=== PATIENT | female | born 1990 | race Caucasian/White ===

== ENCOUNTER 2019-07-07 19:34 | Inpatient (IN) ==
[2019-07-07] MEDS ORDERED: LACTATED RINGER'S 1,000 ML IV PRN ×2 (20:52→21:17)
[2019-07-07] MEDS ORDERED: PENICILLIN G POTASSIUM 6 MU in DEXTROSE 5% 250 ML IV ONE (21:00)
[2019-07-07] MEDS ORDERED: OXYTOCIN 30 UNITS/500 ML BAG IV PRN (21:17)
[2019-07-07] MEDS ORDERED: PENICILLIN G POTASSIUM 3 MU in DEXTROSE 5% 100 ML IV PRN (21:17)
--- NOTE | 2019-07-07 21:28 | History & Physical Report ---
Date of Service July 07, 2019 Assessment & Plan (1) uterine contractions in third trimester, antepartum: 29 yo at 35.4 wks with ctxs, cervical change VSS Afebrile FHR reassuring GBS unknown, h/o GBS+ x2 S/P Betamethasone series Plan to admit for labor, PCN, IVF, observe Anticipate History of Present Illness Chief Complaint: Contractions Primary Care Provider: NO PCP Patient is a 29 yo at 35.4 wks who has been feeling ctxs since yesterday morning, they got closer and painful this afternoon. EVERY 1-3 MIN, PAIN IS 9/10 She has not call office nor me and presented to L&D this evening No [facility] show+ +FM Her has been complicated by 1) Smoker 2) TPTL: FFN+, s/p Betamethasone series 1 weeks ago 3) Unknown GBS ( h/o GBS+ for the last 2 pregnancies) 4) LGSIL pap Allergies Allergy/AdvReac Type Severity Reaction Status Date / Time morphine Allergy Mild Unknown Verified 07/07/19 21:04 acetaminophen AdvReac Unknown itch Verified 04/07/16 03:02 codeine AdvReac Unknown itch Verified 04/07/16 03:02 Home Medications Home Medications Medication Instructions Recorded Confirmed Type vit-iron fum-folic ac 1 tab PO DAILY 07/07/19 07/07/19 History [ Vitamin] Patient History Family History Other Family history of diabetes mellitus Social History Preferred Language: Congolese Communication Ability: Effective Motorcycle Racer Required: No Beliefs That Will Affect Care: None marital status: Current Living Situation: Family Current Living Situation Comment: Pt lives with , 2 kids, and her mom Other Information That Helps Us Care for You: No Feels Safe at Home: Yes Safety Concerns: Feels Safe At This Time Smoking Status: Current every day smoker Tobacco Type: cigarettes ; Cigarettes Per Day: 5-6 ; Do You Dip or Chew Tobacco: No ; Second Hand Exposure: Yes ; Tobacco Cessation Education Requested by Patient: No Hx Alcohol Use: No Hx Substance Use: No 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
[2019-07-07 21:34] LABS: Basophils # (auto) 0.03 K/uL (0-0.2); Basophils % (auto) 0.2 %; Eosinophils # (auto) 0.21 K/uL (0-0.5); Eosinophils % (auto) 1.4 %; Hematocrit (blood only) 35.3 % (37-47); Hemoglobin 12.2 g/dL (12.0-16.0); Immature Granulocytes # (auto) 0.05 K/uL (0.00-0.02); Immature Granulocytes % (auto) 0.3 %; Lymphocytes # (auto) 2.34 K/uL (1.2-3.4); Lymphocytes % (auto) 15.5 %; Mean Corpuscular Hgb Conc 34.6 g/dL (32-36); Mean Corpuscular Volume 87.4 fL (80-100); Mean Platelet Volume 11.4 fL (7.4-10.4); Monocytes # (auto) 1.13 K/uL (0.11-0.59); Monocytes % (auto) 7.5 %; Neutrophils % (auto) 75.1 %; Platelet Count 241 K/uL (130-400); RDW Coefficient of Variation 13.6 % (11.5-14.5); RDW Standard Deviation 43.9 fL (36.4-46.3); Red Blood Count 4.04 M/uL (4.2-5.4); White Blood Count 15.06 K/uL (4.8-10.8)
[2019-07-07] MEDS ORDERED: fentaNYL citrate 100 MCG/2 ML VIAL ONE (22:01)
[2019-07-07] MEDS ORDERED: BUPIVACAINE 0.25% 30 ML VIAL ONE (22:01)
[2019-07-07] MEDS ORDERED: ePHEDrine sulfate 50 MG/ML AMP ONE (22:01)
[2019-07-07] MEDS ORDERED: fentaNYL 2MCG/ML ROPIV 1.25MG/ML 100 ML BAG EPI ONE (22:02)
[2019-07-07] MEDS ORDERED: fentaNYL 2MCG/ML ROPIV 1.25MG/ML 100 ML BAG EPI PRN (22:16)
[2019-07-07] MEDS ORDERED: ONDANSETRON INJ 2 MG/ML 2 ML VIAL IV PRN (22:16)
[2019-07-07] MEDS ORDERED: NALOXONE HCL 0.4 MG/1 ML VIAL/CARP IV PRN (22:16)
[2019-07-07] MEDS ORDERED: DiphenhydrAMINE HCL 50 MG/ML VIAL IV PRN (22:16)
[2019-07-07] MEDS ORDERED: ePHEDrine sulfate 50 MG/ML AMP IV PRN (22:16)
[2019-07-07] MEDS ORDERED: NALOXONE HCL 1 MG in SODIUM CHLORIDE 0.9% 1000ML 1,000 ML IV PRN (22:16)
--- NOTE | 2019-07-07 22:32 | Anesthesiology Consultation ---
Date of Service July 07, 2019 Assessment & Plan (1) Encounter for pre-operative examination: Chart Review Chart Review: Patient NOT seen in Pre Admission Testing and Acceptable Risk for Labor Epidural Consults Requested none History Height/Weight Height: 5 ft 2.5 in Weight: 68.492 kg Allergies Allergy/AdvReac Type Severity Reaction Status Date / Time morphine Allergy Mild Unknown Verified 07/07/19 21:04 acetaminophen AdvReac Unknown itch Verified 04/07/16 03:02 codeine AdvReac Unknown itch Verified 04/07/16 03:02 Medications Home Medications Medication Instructions Recorded Confirmed Last Taken vit-iron fum-folic ac 1 tab PO DAILY 07/07/19 07/07/19 07/06/19 09:00 [ Vitamin] Active Medications Generic Name Dose Route Start Last Admin Trade Name Freq PRN Reason Stop Dose Admin Lactated Ringer's 1,000 mls @ 125 mls/hr 07/07/19 20:52 07/07/19 20:56 Lr IV 08/06/19 20:51 999 mls/hr .Q8H PRN Administration L&D Protocol Protocol Past Medical History low back pain Exercise / Class Metabolic Activity II 4-5 Yardwork/Stairs/Walk up hill Past Family History Family History Other Family history of diabetes mellitus Past Surgical History tonsils removed Past Anesthesia History No Hx of Anesthesia Complications and No Family Hx of Anesthesia Complications History of PONV No Hx of PONV and No Hx of Motion Sickness Social History Smoking Status: Current every day smoker tobacco type: cigarettes Smoking cigarettes per day: 5-6 Do You Dip or Chew Tobacco: No Hx Alcohol Use: No Hx Substance Use: No substance use type: does not use Physical Exam Vital Signs Last Vital Signs Temp 37.0 C 07/07/19 19:49 Pulse 68 07/07/19 19:55 Resp 18 07/07/19 19:49 BP 119/63 07/07/19 19:55 Testing Laboratory Results 07/07/19 21:13
[2019-07-08] MEDS ORDERED: ACETAMINOPHEN 325 MG TAB PO PRN (02:01)
[2019-07-08] MEDS ORDERED: BENZOCAINE 20% AER SPR 82.5 GM CAN EXT PRN (02:01)
[2019-07-08] MEDS ORDERED: OXYTOCIN 30 UNITS/500 ML BAG IV PRN (02:01)
[2019-07-08] MEDS ORDERED: DIPHTHERIA/TETANUS/PERTUSSIS 0.5 ML SYR/VIAL IM ONE (02:01)
[2019-07-08] MEDS ORDERED: SUPERCREAM 0.870% 15 GM JAR EXT PRN (02:01)
[2019-07-08] MEDS ORDERED: MEASLES, MUMPS & RUBELLA VIRUS VIAL SQ ONE (02:01)
[2019-07-08] MEDS ORDERED: HYDROCORTISONE ACETATE 25 MG SUPP PR PRN (02:01)
[2019-07-08] MEDS ORDERED: BISACODYL 10 MG SUPP PR PRN (02:01)
[2019-07-08] MEDS ORDERED: LACTATED RINGER'S 1,000 ML IV SCH (02:15)
--- NOTE | 2019-07-08 09:19 | Anesthesia Procedure Note ---
Date of Service July 08, 2019 Anesthesia Post Epidural Note Vital Signs Vital Signs: Temp Pulse Resp BP Pulse Ox 36.8 C 62 14 114/67 98 07/08/19 08:10 07/08/19 08:10 07/08/19 08:10 07/08/19 08:10 07/08/19 08:10 Pain Intensity Upper Abdomen: Pain Intensity: 0 Notes Mental Status: alert / awake / arousable and participated in evaluation Nausea / Vomiting: adequately controlled Pain: adequately controlled Airway Patency, RR, SpO2: stable & adequate BP & HR: stable & adequate Hydration State: stable & adequate Neuraxial Anesthesia: was administered and sensory block is resolving Anesthetic Complications: no major complications apparent and Pt Satisfied with anesthetic care Epidural: Removed without complications and With tip intact
--- NOTE | 2019-07-08 11:13 | Delivery Summary ---
DATE OF OPERATION: 07/08/2019 TIME OF DELIVERY OF BABY: 1:52 a.m. TIME OF DELIVERY OF PLACENTA: 1:57 a.m. DETAILS OF DELIVERY: The patient was found to be fully dilated and desired to push. Before she started pushing, the baby's head was over the perineum. With 1 push, baby was delivered altogether and handed off to the mother where mouth and nose were suctioned. Cord was clamped x2 at 1 minute delay and cut. Cord blood was obtained. Vagina and perineum were checked for lacerations. They were intact. No lacerations were found. The placenta was found to be in the vagina, delivered spontaneously as intact and complete. Uterus was explored, found to be empty. Lower segment was cleared of all clots and debris. Fundus was firm. EBL was 50 mL. Mom and baby tolerated the procedure well. Baby was a viable male , Apgars 9/10. No complications happened and I was present during whole procedure. I attest to the content of the Intraoperative Record and any orders documented therein. Any exceptions are noted below. EJD
[2019-07-08] MEDS: IBUPROFEN 600 MG TAB PO PRN ×3 (11:48→20:00)
[2019-07-08] MEDS: DOCUSATE SODIUM 100 MG CAP PO SCH ×2 (11:48→20:52)
[2019-07-08] MEDS: PRENATAL VITAMIN 1 TAB PO SCH (11:49)
[2019-07-09 07:34] LABS: Hematocrit (blood only) 34.5 % (37-47); Hemoglobin 11.7 g/dL (12.0-16.0); Mean Corpuscular Hgb Conc 33.9 g/dL (32-36); Mean Corpuscular Volume 88.5 fL (80-100); Mean Platelet Volume 11.4 fL (7.4-10.4); Platelet Count 222 K/uL (130-400); RDW Coefficient of Variation 14.2 % (11.5-14.5); RDW Standard Deviation 45.9 fL (36.4-46.3); White Blood Count 12.45 K/uL (4.8-10.8)
[2019-07-09] MEDS: DOCUSATE SODIUM 100 MG CAP PO SCH ×3 (08:00→21:18)
[2019-07-09] MEDS: PRENATAL VITAMIN 1 TAB PO SCH (08:00)
--- NOTE | 2019-07-09 10:40 | Obstetrical Progress Note ---
Date of Service July 09, 2019 Assessment & Plan (1) normal course: PPD #2 pt doing well d/c home with instructions Subjective Ambulation: ambulating normally Voiding: no voiding problems Passing Gas:: Yes Diet Tolerance:: regular diet Lochia:: Small Feeding Type:: breast feeding Review of Systems All systems reviewed & are unremarkable except as noted in HPI & below Physical Exam Constitutional WD/WN, vitals as above well developed and well nourished Eyes PERRL, conjunctivae normal, anicteric sclerae Neck trachea midline, no thyromegaly Respiratory normal respiratory effort, lungs clear to auscultation Auscultation: no crackles, no rales and no wheezes Cardiovascular RRR, no murmur, no edema Gastrointestinal (Abdomen) normal bowel sounds, soft, nontender, no hepatosplenomegaly Uterus is below umbilicus Musculoskeletal no cyanosis or clubbing, extremities motor strength 5/5 Skin no rashes, warm and dry Neurologic patellar DTR's 2+ bilat, sensation intact Psychiatric A+Ox3, euthymic affect Genitourinary normal external appearance Results & Data Vital Signs (Past 12 Hours) Vital Signs Temp Pulse Resp BP Pulse Ox 07/09/19 08:05 36.8 C 63 12 118/62 98 07/09/19 00:00 36.8 C 73 18 115/57 L
[2019-07-09] MEDS: IBUPROFEN 600 MG TAB PO PRN (15:36)
[2019-07-09] MEDS ORDERED: BISACODYL 5 MG TABEC PO SCH (20:00)
[2019-07-10 06:22] LABS: Hematocrit (blood only) 35.3 % (37-47); Hemoglobin 12.1 g/dL (12.0-16.0)
[2019-07-10] MEDS: IBUPROFEN 600 MG TAB PO PRN (07:56)
[2019-07-10] MEDS: DOCUSATE SODIUM 100 MG CAP PO SCH (07:56)
[2019-07-10] MEDS: PRENATAL VITAMIN 1 TAB PO SCH (07:56)
== END 2019-07-10 09:18 | disposition home or self-care (01) | DRG 807 ==
LOC: OPB 19:34 → 4S1 19:37 → 4N 07-08 04:05

== ENCOUNTER 2024-01-29 16:37 | Inpatient (IN) ==
--- NOTE | 2024-01-29 16:43 | ED Triage Note ---
Date of Service January 29, 2024 Provider in Triage Author: Arturo Mills History of Present Illness This patient was briefly evaluated while in triage. An abbreviated physical exam was performed. This patient is a 33-year-old Female who presents to the ED for evaluation of sick x [address], cough, pain with breathing stabbing chest, rib and back pain took Augmentin and prednisone in the last 1.5 weeks negative COVID/Flu 2 weeks ago Physical Exam GENERAL: NAD CARDIOVASCULAR: RRR RESPIRATORY: CTA ABDOMEN: BS x 4. Nontender to palpation. Initial orders for labs and / or imaging were placed and patient was placed in the waiting area until a bed is available. Please see further documentation for the full ED course.
[2024-01-29] MEDS: KETOROLAC 30 MG/ML VIAL IV STA (16:53)
--- NOTE | 2024-01-29 17:08 | XRay Report ---
TWO VIEW CHEST CLINICAL HISTORY: Dyspnea. FINDINGS: PA and lateral chest radiographs are obtained. No prior studies are available for compariso n at the time of dictation. The cardiomediastinal silhouette is unremarkable. The lungs and pleural spaces are clear. There is no pneumothorax. The bony thorax appears intact. IMPRESSION: No active disease in the chest. ACT 112: Negative or not required by law. Electronically signed by: Lele Chand M.D. 01/29/2024 5:07 PM
[2024-01-29 17:17] LABS: Basophils # (auto) 0.02 K/uL (0.00-0.20); Basophils % (auto) 0.2 %; Hematocrit (blood only) 37.8 % (37.0-47.0); Hemoglobin 12.5 g/dl (12.0-16.0); Immature Granulocytes # (auto) 0.05 K/uL (0.01-0.20); Immature Granulocytes % (auto) 0.5 %; Lymphocytes # (auto) 2.25 K/uL (1.20-3.40); Lymphocytes % (auto) 21.6 %; Mean Corpuscular Hemoglobin 28.8 pg (25.0-34.0); Mean Corpuscular Hgb Conc 33.1 g/dL (32.0-36.0); Mean Corpuscular Volume 87.1 fL (80.0-100.0); Mean Platelet Volume 9.8 fL (9.4-12.4); Monocytes # (auto) 0.61 K/uL (0.11-0.59); Monocytes % (auto) 5.9 %; Neutrophils # (auto) 7.48 K/uL (1.40-6.50); Neutrophils % (auto) 71.8 %; Platelet Count 442 K/uL (130-400); RDW Coefficient of Variation 13.2 % (11.5-14.5); RDW Standard Deviation 41.2 fL (36.4-46.3); Red Blood Count 4.34 M/uL (4.20-5.40); White Blood Count 10.41 K/ul (4.8-10.8)
[2024-01-29 17:28] LABS: Pregnancy Test, Serum Negative (Negative)
[2024-01-29 17:31] LABS: Albumin Level 3.9 gm/dl (3.4-5.0); BUN Creatinine Ratio 11.6 (10-20); Bilirubin,Total 0.3 mg/dl (0.2-1.0); Calcium 8.8 mg/dl (8.6-10.3); Creatinine Clr Calc Pharmacy 112.4 ml/min; Est GFR (African American) 132.6 ml/min; Est GFR (Non-African American) 114.4 ml/min; Potassium 3.3 mmol/L (3.5-5.1); Total Protein 7.9 gm/dl (6.0-8.3)
[2024-01-29 17:37] LABS: Troponin I High Sensitivity 2.9 pg/ml (0-14)
[2024-01-29 17:53] LABS: Adenovirus PCR Not Detected (NotDetected); Bordetella parapertussis PCR Not Detected (NotDetected); Bordetella pertussis PCR Not Detected (NotDetected); Chlamydia pneumoniae PCR Not Detected (NotDetected); Coronavirus 229E PCR Not Detected (NotDetected); Coronavirus CoV-2 (COVID19)PCR Not Detected (NotDetected); Coronavirus HKU1 PCR Not Detected (NotDetected); Coronavirus NL63 PCR DETECTED (NotDetected); Coronavirus OC43PCR Not Detected (NotDetected); Human Metapneumovirus PCR Not Detected (NotDetected); Influenza A PCR Not Detected (NotDetected); Influenza B PCR DETECTED (NotDetected); Mycoplasma pneumoniae PCR Not Detected (NotDetected); Parainfluenza Virus 1 PCR Not Detected (NotDetected); Parainfluenza Virus 2 PCR Not Detected (NotDetected); Parainfluenza Virus 3 PCR Not Detected (NotDetected); Parainfluenza Virus 4 PCR Not Detected (NotDetected); Respiratory Syncytial VirusPCR Not Detected (NotDetected); Rhinovirus/Enterovirus PCR Not Detected (NotDetected)
[2024-01-29] MEDS: ALBUT/IPRATROP 3MG/0.5MG NEB 3 ML VIAL NEB STA ×2 (19:17→20:41)
[2024-01-29] MEDS: methylPREDNISolone 125 MG/2 ML VIAL IV STA (19:17)
[2024-01-29 19:42] LABS: D Dimer 690 ug/L FEU (0-500)
[2024-01-29] MEDS: OPTIRAY 320 125ml IV ONE (20:17)
--- NOTE | 2024-01-29 20:47 | CT Scan Report ---
Exam(s): CTA CHEST IV Amt: 71 ml opti 320 EXAM: CT Angiography Chest With Intravenous Contrast CLINICAL HISTORY: Pulmonary embolus. TECHNIQUE: Axial computed tomographic angiography images of the chest with intravenous contrast. CTDI is 15.86 mGy and DLP is 492.23 mGy-cm. Automated exposure control was utilized for the study. A dose lowering technique was utilized adhering to the principles of ALARA. MIP reconstructed images were created and reviewed. COMPARISON: Chest radiograph 01/29/2024 FINDINGS: Pulmonary arteries: Unremarkable. No pulmonary embolus. Aorta: No acute findings. No thoracic aortic aneurysm. Lungs: Bibasilar airspace opacities are concerning for atypical infection and/or aspiration. Interseptal thickening is also noted, nontender superimposed pulmonary edema. Pleural space: Unremarkable. No significant effusion. No pneumothorax. Heart: Unremarkable. No cardiomegaly. No significant pericardial effusion. No evidence of RV dysfunction. Bones/joints: No acute fracture. No dislocation. Soft tissues: Unremarkable. Lymph nodes: Hilar lymphadenopathy measures up to 0.6 cm. IMPRESSION: 1. No pulmonary embolus. 2. Bibasilar airspace opacities are concerning for atypical infection and/or aspiration. 3. Interseptal thickening is also noted, nontender superimposed pulmonary edema. 4. Hilar lymphadenopathy measures up to 0.6 cm. This is likely reactive, although nonspecific. Electronically signed by: April Ash MD 01/29/24 20:46 PM
--- NOTE | 2024-01-29 21:44 | History & Physical Report ---
Date of Service January 29, 2024 Assessment & Plan (1) Hypoxia: (2) Cough: (3) Influenza B: (4) Coronavirus infection: Plan Coronavirus NL63 | Influenza B | Cough -Ongoing symptoms for >2 weeks, completed outpatient course of Augmentin and prednisone without improvement -Tested positive for coronavirus, influenza B on admission -Although symptom timeline >2 weeks, patient had two recent negative flu tests as outpatient so this could be a more recent flu infection -Will start Tamiflu -Chest x-ray unremarkable -D-dimer at 690, CTA chest: No evidence of pulmonary embolism, bibasilar airspace opacities noted, hilar lymphadenopathy likely reactive -WBC within normal limits, afebrile. Lower suspicion for bacterial infection at this time. -Repeat CBC ordered for a.m. -Guaifenesin Tessalon Perles PRN -Received Methylprednisolone 125mg in ED. Will continue with Methylpred -Duonebs q4h PRN -Currently on 3L NC with O2 sat of 94%. Wean as able. 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 Admit to medical Diet: Regular VTE Prophylaxis: SCDs Code Status: Full Code History of Present Illness Primary Care Provider: Valeria Jo MD Jennifer Aguirre is a 33 year-old female without significant past medical history who presented to the ED with concern of shortness of breath. She states that she has had ongoing cough and chest/rib pain secondary to her cough for several weeks. She was seen at urgent care and prescribed Augmentin which she finished >1 week ago, then went to urgent care again and was diagnosed with pleurisy and given a course of prednisone which she finished two days ago. She notes that she did have a GI illness several weeks ago and had several episodes of vomiting, and has also had several coughing fits that induce vomiting. Denies any current nausea or diarrhea. Endorses chest pain around her breasts and upper ribs that is worse with coughing. She states her cough is currently nonproductive but after receiving breathing treatments in the ED she feels that "things are loosening up." Patient states that she quit cigarette smoking three years ago but does vape daily. ED Course: -CXR, CTA chest -Duoneb x2 -Toradol Allergies Allergy/AdvReac Type Severity Reaction Status Date / Time morphine Allergy Mild Unknown Verified 01/29/24 22:11 acetaminophen Allergy Unknown itch Verified 01/29/24 22:11 codeine Allergy Unknown itch Verified 01/29/24 22:11 Home Medications Medication Instructions Recorded Confirmed Type buprenorphine HCl 8 mg sublingual 8 mg sublingual BID 01/29/24 01/29/24 History tablet dextromethorphan polistirex 30 0 ml PO Q12H PRN .cough/cold 01/29/24 01/29/24 History mg/5 mL oral susp ext.release 12hr (Delsym 12 hour) [id number]-acetaminophen 0 ml PO DIRECTED .flu symptoms 01/29/24 01/29/24 History 6.25-5-10-325 mg/15 mL oral liquids,seq (Vicks DayQuil-NyQuil Cold-Flu) drospirenone 3 mg-ethinyl 1 tab PO DAILY 01/29/24 01/29/24 History estradiol 0.02 mg tablet pseudoephedrine HCl 30 mg tablet 0 mg PO Q6H PRN .flu symptoms 01/29/24 01/29/24 History (Sudafed) albuterol sulfate 90 mcg/actuation 1 inh inhalation Q6H PRN shortness 01/30/24 Rx aerosol inhaler of breath or wheezing #6.7 grams benzonatate 100 mg capsule 200 mg (2 x 100 mg) PO Q8H PRN 01/30/24 Rx cough 10 days #30 caps codeine 10 mg-guaifenesin 100 mg/5 10 ml PO Q4H PRN cough #120 mL 01/30/24 Rx mL oral liquid oseltamivir 75 mg capsule (Tamiflu) 75 mg PO BID 5 days #10 caps 01/30/24 Rx prednisone 10 mg tablet See Taper PO DIRECTED #20 tabs 01/30/24 Rx Past Med/Surg History Medical History No pertinent family history No pertinent past medical history Surgical History No pertinent past surgical history Family History Other Family history of diabetes mellitus Social History Smoking Status: Current every day smoker Tobacco Type: E-cigarettes / Vaping Second Hand Exposure: Yes; Do You Dip or Chew Tobacco: No; Hx Alcohol Use: No Hx Substance Use: No Preferred Language: Colombian Communication Ability: Effective Warp Doffer Required: No Beliefs That Will Affect Care: None marital status: Current Living Situation: Family Current Living Situation Comment: Pt lives with , 3 kids Feels Safe at Home: Yes Assistive Devices: Apnea Monitor Review of Systems Review of Systems: As per above Physical Exam Constitutional: WD/WN, vitals as above Eyes: + anicteric sclerae; no conjunctival abn ormality ENMT: Ears: no external ear abnormality Nose: no external nose abnormality Erythematous oropharynx Respiratory: + cough; no respiratory distress Ausc ultation: + wheezes Cardiovascular: Rate/Rhythm: regular rate and regular rhythm Gastrointestinal (Abdomen): Inspection/Auscultation: abdomen normal to inspection; abdomen not distended Percussion/Palpation: abdomen soft; abdomen nontender and no guarding Musculoskeletal: Moves all limbs independently Skin: no rashes, warm and dry Neurologic: no focal motor deficits Psychiatric: A+Ox3, euthymic affect Lymphatic: no cervical lymphadenopathy Results & Data Results & Data Vital Signs (Past 12 Hours) Vital Signs Temp Pulse Resp BP BP Pulse Ox O2 Del Method 01/29/24 20:30 59 L 16 117/59 L 94 Nasal Cannula 01/29/24 20:00 64 14 112/65 94 Nasal Cannula 01/29/24 19:54 89 L Room Air, Nasal Cannula 01/29/24 19:00 51 L 16 106/58 L 93 01/29/24 18:11 53 L 01/29/24 18:00 106/64 01/29/24 18:00 51 L 16 93 01/29/24 17:59 49 L 17 92 01/29/24 17:43 17 125/66 94 01/29/24 16:39 37.4 C 69 18 134/79 95 Room Air O2 Flow Rate 01/29/24 20:30 3 01/29/24 20:00 3 01/29/24 19:54 0 01/29/24 19:00 01/29/24 18:11 01/29/24 18:00 01/29/24 18:00 01/29/24 17:59 01/29/24 17:43 01/29/24 16:39 Diagnostic Findings Chest X-Ray 01/29/24 16:43 TWO VIEW CHEST CLINICAL HISTORY: Dyspnea. FINDINGS: PA and lateral chest radiographs are obtained. No prior studies are available for comparison at the time of dictation. The cardiomediastinal silhouette is unremarkable. The lungs and pleural spaces are clear. There is no pneumothorax. The bony thorax appears intact. IMPRESSION: No active disease in the chest. ACT 112: Negative or not required by law. Electronically signed by: Lele Chand M.D. 01/29/2024 5:07 PM Chest CTA 01/29/24 19:58 Exam(s): CTA CHEST IV Amt: 71 ml opti 320 EXAM: CT Angiography Chest With Intravenous Contrast CLINICAL HISTORY: Pulmonary embolus. TECHNIQUE: Axial computed tomographic angiography images of the chest with intravenous contrast. CTDI is 15.86 mGy and DLP is 492.23 mGy-cm. Automated exposure control was utilized for the study. A dose lowering technique was utilized adhering to the principles of ALARA. MIP reconstructed images were created and reviewed. COMPARISON: Chest radiograph 01/29/2024 FINDINGS: Pulmonary arteries: Unremarkable. No pulmonary embolus. Aorta: No acute findings. No thoracic aortic aneurysm. Lungs: Bibasilar airspace opacities are concerning for atypical infection and/or aspiration. Interseptal thickening is also noted, nontender superimposed pulmonary edema. Pleural space: Unremarkable. No significant effusion. No pneumothorax. Heart: Unremarkable. No cardiomegaly. No significant pericardial effusion. No evidence of RV dysfunction. Bones/joints: No acute fracture. No dislocation. Soft tissues: Unremarkable. Lymph nodes: Hilar lymphadenopathy measures up to 0.6 cm. IMPRESSION: 1. No pulmonary embolus. 2. Bibasilar airspace opacities are concerning for atypical infection and/or aspiration. 3. Interseptal thickening is also noted, nontender superimposed pulmonary edema. 4. Hilar lymphadenopathy measures up to 0.6 cm. This is likely reactive, although nonspecific. Electronically signed by: April Ash MD 01/29/24 20:46 PM Supervising Physician Co-Signing Physician Notes Attending addendum: I have physically seen this patient, have supervised the medical residents activities, and agree with the H&P unless as otherwise noted. Assessment and Plan: Influenza B/coronavirus NL 63 combined infection- Admitted for symptomatic treatment Status post treatment in the outpatient setting with Augmentin and prednisone Since unclear time most of the beginning of influenza B, will start Tamiflu CTA chest negative for PE question of atypical process, unlikely aspiration Hilar lymphadenopathy noted Given Solu-Medrol 125 mg IV in ED Continue Solu-Medrol 40 mg IV every 8 hours DuoNebs every 4 hours as needed Guaifenesin extended release 60 mg p.o. twice daily Nasal cannula oxygen, with titration goal 94% Transaminitis/hepatitis- Likely secondary to viral process AST 148, ALT 194 with no baseline for comparison Follow serially, if no improvement, can look at testing acute hepatitis panel, with history of methamphetamine use Resident Activity Tracking Resident Involvement: Resident Care Provided Care Provided: Adult Hospital Medicine
--- NOTE | 2024-01-29 23:05 | Emergency Department Note ---
History of Present Illness General Chief Complaint: Cough Stated Complaint: CHEST PAIN,BACK PAIN,COUGHING,HARD TO BREATH Time Seen by Provider: 01/29/24 18:25 History of Present Illness Provider Complaint: shortness of breath, cough and chest pain Onset (ago): month(s) (1) Severity: severe Consistency/Duration: + progressively worsening Maximum Pain Intensity: 6 Relieved By: + nothing Exacerbated By: + exertion and + coughing Context: + recent illness; no recent travel or no trauma/injury Associated symptoms: + wheezing; no pain with inspiration, no fever, no sputum production, no paresthesias, no palpitations, no hemoptysis, no abdominal pain or no rash Related Data Home oxygen amount: none Home Medications Medication Instructions Recorded Confirmed Type buprenorphine HCl 8 mg sublingual 8 mg sublingual BID 01/29/24 01/29/24 History tablet dextromethorphan polistirex 30 0 ml PO Q12H PRN .cough/cold 01/29/24 01/29/24 History mg/5 mL oral susp ext.release 12hr (Delsym 12 hour) rneaimitus-JD-HW-acetaminophen 0 ml PO DIRECTED .flu symptoms 01/29/24 01/29/24 History 6.25-5-10-325 mg/15 mL oral liquids,seq (Vicks DayQuil-NyQuil Cold-Flu) drospirenone 3 mg-ethinyl 1 tab PO DAILY 01/29/24 01/29/24 History estradiol 0.02 mg tablet pseudoephedrine HCl 30 mg tablet 0 mg PO Q6H PRN .flu symptoms 01/29/24 01/29/24 History (Sudafed) Allergies Allergy/AdvReac Type Severity Reaction Status Date / Time morphine Allergy Mild Unknown Verified 01/29/24 22:11 acetaminophen Allergy Unknown itch Verified 01/29/24 22:11 codeine Allergy Unknown itch Verified 01/29/24 22:11 Past Med/Surg History Medical History No pertinent family history No pertinent past medical history Surgical History No pertinent past surgical history Family History Other Family history of diabetes mellitus Social History Smoking Status: Current every day smoker Tobacco Type: E-cigarettes / Vaping Second Hand Exposure: Yes; Do You Dip or Chew Tobacco: No; Hx Alcohol Use: No Hx Substance Use: No Preferred Language: Haitian Communication Ability: Effective 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 Beliefs That Will Affect Care: None marital status: Current Living Situation: Family Current Living Situation Comment: Pt lives with , 2 kids, and her mom Feels Safe at Home: Yes Assistive Devices: Apnea Monitor Physical Exam 2 Vital Signs: Vital Signs - 24 hr 01/29/24 16:39 01/29/24 17:43 01/29/24 17:59 Temperature 37.4 C Temperature Source Temporal Artery Sc an Pulse Rate 69 49 L Pulse Rate from Sp O2 Sensor 52 L Respiratory Rate 18 17 17 Respiratory Effort / Characteristics Non-Labored Respiratory Depth Normal Respiratory Patter n Regular Blood Pressure 134/79 Blood Pressure [Le ft Arm] 125/66 Blood Pressure Maris n 97 Blood Pressure Maris n [Left Arm] 85 Pulse Oximetry 95 94 92 Oxygen Delivery Me thod Room Air Oxygen Flow Rate Sepsis Recent Feve r Within 48 Hours No Sepsis New/Unexpla ined Change in Men russell Status No Sepsis Action Take n by Nursing No Action Required Oxygen Flow Rate - Titration Pulse Oximetry Pos t Tiitration 01/29/24 18:00 01/29/24 18:00 01/29/24 18:11 Temperature Temperature Source Pulse Rate 51 L 53 L Pulse Rate from Sp O2 Sensor 51 L Respiratory Rate 16 Respiratory Effort / Characteristics Respiratory Depth Respiratory Patter n Blood Pressure 106/64 Blood Pressure [Le ft Arm] Blood Pressure Maris n 80 Blood Pressure Maris n [Left Arm] Pulse Oximetry 93 Oxygen Delivery Me thod Oxygen Flow Rate Sepsis Recent Feve r Within 48 Hours Sepsis New/Unexpla ined Change in Men russell Status Sepsis Action Take n by Nursing Oxygen Flow Rate - Titration Pulse Oximetry Pos t Tiitration 01/29/24 19:00 01/29/24 19:54 01/29/24 20:00 Temperature Temperature Source Pulse Rate 51 L 64 Pulse Rate from Sp O2 Sensor Respiratory Rate 16 14 Respiratory Effort / Characteristics Respiratory Depth Respiratory Patter n Blood Pressure 106/58 L 112/65 Blood Pressure [Le ft Arm] Blood Pressure Maris n 74 80 Blood Pressure Maris n [Left Arm] Pulse Oximetry 93 89 L 94 Oxygen Delivery Me thod Room Air Nasal Can nula Nasal Cannula Oxygen Flow Rate 0 3 Sepsis Recent Feve r Within 48 Hours Sepsis New/Unexpla ined Change in Men russell Status Sepsis Action Take n by Nursing Oxygen Flow Rate - Titration 3 Pulse Oximetry Pos t Tiitration 95 01/29/24 20:30 01/29/24 21:00 01/29/24 22:00 Temperature Temperature Source Pulse Rate 59 L 74 61 Pulse Rate from Sp O2 Sensor Respiratory Rate 16 22 16 Respiratory Effort / Characteristics Respiratory Depth Respiratory Patter n Blood Pressure 117/59 L 120/64 114/48 L Blood Pressure [Le ft Arm] Blood Pressure Maris n 78 82 70 Blood Pressure Maris n [Left Arm] Pulse Oximetry 94 90 94 Oxygen Delivery Me thod Nasal Cannula Nasal Cannula Nasal Cannula Oxygen Flow Rate 3 3 3 Sepsis Recent Feve r Within 48 Hours Sepsis New/Unexpla ined Change in Men russell Status Sepsis Action Take n by Nursing Oxygen Flow Rate - Titration Pulse Oximetry Pos t Tiitration 01/29/24 22:44 Temperature Temperature Source Pulse Rate 62 Pulse Rate from Sp O2 Sensor Respiratory Rate Respiratory Effort / Characteristics Respiratory Depth Respiratory Patter n Blood Pressure Blood Pressure [Le ft Arm] Blood Pressure Maris n Blood Pressure Maris n [Left Arm] Pulse Oximetry Oxygen Delivery Me thod Oxygen Flow Rate Sepsis Recent Feve r Within 48 Hours Sepsis New/Unexpla ined Change in Men russell Status Sepsis Action Take n by Nursing Oxygen Flow Rate - Titration Pulse Oximetry Pos t Tiitration Physical Exam: Physical Exam GENERAL: oriented to person, place, and time. appears well-developed and well- nourished. HENT: Exam performed. - Head: Normocephalic and atraumatic. EYES: Conjunctivae and EOM are normal. Right eye exhibits no discharge. Left eye exhibits no discharge. No scleral icterus. NECK: Normal range of motion. Neck supple. No JVD present. CV: Normal rate, regular rhythm, normal heart sounds and intact distal pulses. There is no peripheral edema. Palpable radial pulses bue. PULM/CHEST: Rhonchi and expiratory wheezes bilaterally. ABD: The abdomen is soft. There is no tenderness. NEURO: Motor and sensation grossly intact. SKIN: Skin is warm and dry. He is not diaphoretic. PSYCH: normal mood and affect. Behavior is normal. Judgment and thought content normal. Course Course 1825: The patient was evaluated in room B9. A complete history and physical exam was performed Cardiac monitoring: An order was placed for continuous cardiac monitoring. The monitor shows a rate of 50 with sinus rhythm interpreted by me 2000: Patient hypoxic on room air. Supplemental oxygen applied which improved the patient's oxygen saturation. Status post 1 DuoNeb the patient has increased wheezing. Will repeat DuoNeb's. 2308: Vital signs stable on supplemental oxygen via nasal cannula. Labs show white blood cell count 10.41. D-dimer is elevated at 690. Potassium 3.3. AST 148 ALT 194. BioFire positive for influenza type B as well as coronavirus NL 63. Patient is not a candidate for Tamiflu. Imaging showed no pulmonary embolus but did show bibasilar airspace opacities concerning for an atypical infection and/or aspiration. Given that the patient has possible aspiration and is influenza positive patient will be covered for aspiration as well as MRSA infection with Zosyn and vancomycin. Blood cultures will be sent. [facility] Waller's team has been notified. Administered Medications Discontinued Medications Albuterol (Albut/Ipratrop 3mg/0.5mg Neb 3 Ml Vial) 3 ml NEB NOW STA; Protocol Stop: 01/29/24 19:12 Last Admin: 01/29/24 19:17 Dose: 3 ml Documented By: PAULA Albuterol (Albut/Ipratrop 3mg/0.5mg Neb 3 Ml Vial) 3 ml NEB NOW STA; Protocol Stop: 01/29/24 20:01 Last Admin: 01/29/24 20:41 Dose: 3 ml Documented By: PAULA Ioversol (Optiray 320 125ml) 71 ml IV ONCE ONE Stop: 01/29/24 20:18 Last Admin: 01/29/24 20:17 Dose: 71 ml Documented By: SENTHIL Ketorolac Tromethamine (Ketorolac 30 Mg/Ml Vial) 30 mg IV NOW STA Stop: 01/29/24 16:45 Last Admin: 01/29/24 16:53 Dose: 30 mg Documented By: TAYLOR Methylprednisolone (Methylprednisolone 125 Mg/2 Ml Vial) 125 mg IV NOW STA Stop: 01/29/24 19:12 Last Admin: 01/29/24 19:17 Dose: 125 mg Documented By: PAULA Medical Decision Making Laboratory Data Attestation: I reviewed the patient's lab results. 01/29/24 16:55 01/29/24 16:55 Lab Results 01/29/24 01/29/24 Range/Units 16:48 16:55 WBC 10.41 (4.8-10.8) K/ul RBC 4.34 (4.20-5.40) M/uL Hgb 12.5 (12.0-16.0) g/dl Hct 37.8 (37.0-47.0) % MCV 87.1 (80.0-100.0) fL MCH 28.8 (25.0-34.0) pg MCHC 33.1 (32.0-36.0) g/dL RDW Std Deviation 41.2 (36.4-46.3) fL RDW Coeff of Vanessa 13.2 (11.5-14.5) % Plt Count 442 H (130-400) K/uL MPV 9.8 (9.4-12.4) fL Immature Gran % (Auto) 0.5 % Neut % (Auto) 71.8 % Lymph % (Auto) 21.6 % Prentiss % (Auto) 5.9 % Eos % (Auto) 0.0 % Baso % (Auto) 0.2 % Neut # (Auto) 7.48 H (1.40-6.50) K/uL Lymph # (Auto) 2.25 (1.20-3.40) K/uL Prentiss # (Auto) 0.61 H (0.11-0.59) K/uL Eos # (Auto) 0.00 (0.00-0.50) K/uL Baso # (Auto) 0.02 (0.00-0.20) K/uL Immature Gran # (Auto) 0.05 (0.01-0.20) K/uL D-Dimer 690 H* (0-500) ug/L FEU Sodium 137 (136-145) mmol/L Potassium 3.3 L (3.5-5.1) mmol/L Chloride 98 (98-107) mmol/L Carbon Dioxide 31 (21-32) mmol/L Anion Gap 8 (3-11) BUN 8 (6-23) mg/dl Creatinine 0.69 (0.6-1.2) mg/dl Est Cr Clr Drug Dosing 112.4 ml/min Est GFR ( Amer) 132.6 ml/min Est GFR (Non-Af Amer) 114.4 ml/min BUN/Creatinine Ratio 11.6 (10-20) Glucose 125 H (70-99(Fasting)) mg/dl Calcium 8.8 (8.6-10.3) mg/dl Total Bilirubin 0.3 (0.2-1.0) mg/dl AST 148 H (13-39) U/L ALT 194 H (7-52) U/L Alkaline Phosphatase 104 (34-104) U/L Troponin I High Sens 2.9 (0-14) pg/ml Total Protein 7.9 (6.0-8.3) gm/dl Albumin 3.9 (3.4-5.0) gm/dl Globulin 4.0 (2.5-4.0) gm/dl Albumin/Globulin Ratio 1.0 (0.9-2) HCG, Qual Negative (Negative) Adenovirus (PCR) Not Detected (NotDetected) B. pertussis DNA (PCR) Not Detected (NotDetected) B.parapertussis DNA PCR Not Detected (NotDetected) C. pneumoniae DNA (PCR) Not Detected (NotDetected) Coronavirus OC43 (PCR) Not Detected (NotDetected) Coronavirus HKU1 (PCR) Not Detected (NotDetected) Coronavirus 229E (PCR) Not Detected (NotDetected) SARS-CoV-2 (PCR) Not Detected (NotDetected) Coronavirus NL63 (PCR) DETECTED A (NotDetected) Human Metapneumovir PCR Not Detected (NotDetected) Influenza Type A (PCR) Not Detected (NotDetected) Influenza Type B (PCR) DETECTED A (NotDetected) M. pneumoniae (PCR) Not Detected (NotDetected) Parainfluenza 1 (PCR) Not Detected (NotDetected) Parainfluenza 2 (PCR) Not Detected (NotDetected) Parainfluenza 3 (PCR) Not Detected (NotDetected) Parainfluenza 4 (PCR) Not Detected (NotDetected) RSV (PCR) Not Detected (NotDetected) Entero/Rhino (PCR) Not Detected (NotDetected) Group A Strep (PCR) NOT DETECTED (NotDetected) Imaging Data Attestation: I personally reviewed and interpreted this imaging study as follows: My Impression: Chest x-ray negative. Airway clear. No pneumothorax. No consolidation. No cardiomegaly or cephalization.. No free air under the diaphragm. No fractures of the skeletal structures. Radiologist's Impression: Chest X-Ray 01/29/24 16:43 TWO VIEW CHEST CLINICAL HISTORY: Dyspnea. FINDINGS: PA and lateral chest radiographs are obtained. No prior studies are available for comparison at the time of dictation. The cardiomediastinal silhouette is unremarkable. The lungs and pleural spaces are clear. There is no pneumothorax. The bony thorax appears intact. IMPRESSION: No active disease in the chest. ACT 112: Negative or not required by law. Electronically signed by: Lele Chand M.D. 01/29/2024 5:07 PM Chest CTA 01/29/24 19:58 Exam(s): CTA CHEST IV Amt: 71 ml opti 320 EXAM: CT Angiography Chest With Intravenous Contrast CLINICAL HISTORY: Pulmonary embolus. TECHNIQUE: Axial computed tomographic angiography images of the chest with intravenous contrast. CTDI is 15.86 mGy and DLP is 492.23 mGy-cm. Automated exposure control was utilized for the study. A dose lowering technique was utilized adhering to the principles of ALARA. MIP reconstructed images were created and reviewed. COMPARISON: Chest radiograph 01/29/2024 FINDINGS: Pulmonary arteries: Unremarkable. No pulmonary embolus. Aorta: No acute findings. No thoracic aortic aneurysm. Lungs: Bibasilar airspace opacities are concerning for atypical infection and/or aspiration. Interseptal thickening is also noted, nontender superimposed pulmonary edema. Pleural space: Unremarkable. No significant effusion. No pneumothorax. Heart: Unremarkable. No cardiomegaly. No significant pericardial effusion. No evidence of RV dysfunction. Bones/joints: No acute fracture. No dislocation. Soft tissues: Unremarkable. Lymph nodes: Hilar lymphadenopathy measures up to 0.6 cm. IMPRESSION: 1. No pulmonary embolus. 2. Bibasilar airspace opacities are concerning for atypical infection and/or aspiration. 3. Interseptal thickening is also noted, nontender superimposed pulmonary edema. 4. Hilar lymphadenopathy measures up to 0.6 cm. This is likely reactive, although nonspecific. Electronically signed by: April Ash MD 01/29/24 20:46 PM ECG Data Attestation: I personally reviewed and interpreted this ECG as follows: Interpretation: Sinus bradycardia with rate of 54. SC 128 QRS [address] elevation ST depression. Left ventricular hypertrophy present. [facility] Narrative 1825: The patient was evaluated in room B9. A complete history and physical exam was performed Cardiac monitoring: An order was placed for continuous cardiac monitoring. The monitor shows a rate of 50 with sinus rhythm interpreted by me 2000: Patient hypoxic on room air. Supplemental oxygen applied which improved the patient's oxygen saturation. Status post 1 DuoNeb the patient has increased wheezing. Will repeat DuoNeb's. 8: Vital signs stable on supplemental oxygen via nasal cannula. Labs show white blood cell count 10.41. D-dimer is elevated at 690. Potassium 3.3. AST 148 ALT 194. BioFire positive for influenza type B as well as coronavirus NL 63. Patient is not a candidate for Tamiflu. Imaging showed no pulmonary embolus but did show bibasilar airspace opacities concerning for an atypical infection and/or aspiration. Given that the patient has possible aspiration and is influenza positive patient will be covered for aspiration as well as MRSA infection with Zosyn and vancomycin. Blood cultures will be sent. [facility]. Waller's team has been notified. Impression & Plan Hypoxia, Influenza B, Coronavirus infection Critical Care Time Critical Care Time: Yes Total Critical Care Time: 36 I have personally spent greater than 36 minutes of critical care time in the direct management of this patient. This includes bedside care, interpretation of diagnostic studies, and testing, discussion with consultants, patient, and family members, and other required patient management activities. This 36 minutes is in excess of all separately billable procedures. Discharge Plan Visit Data Chief Complaint: Cough Stated Complaint: CHEST PAIN,BACK PAIN,COUGHING,HARD TO BREATH ED Provider: Heber Escudero Discharge Problem: Hypoxia, Influenza B, Coronavirus infection Patient Disposition: Admitted As Inpatient Forms Stand Alone Forms: [facility] Prescriptions Prescriptions: No Action dextromethorphan polistirex [Delsym 12 hour] 30 mg/5 mL Suspension,Extended Rel 12 Hr 0 ml PO Q12H PRN (Reason: .cough/cold) pseudoephedrine HCl [Sudafed] 30 mg Tablet 0 mg PO Q6H PRN (Reason: .flu symptoms) buprenorphine HCl 8 mg tablet, sublingual 8 mg SUBLINGUAL BID drospirenone-ethinyl estradiol 3-0.02 mg tablet 1 tab PO DAILY Vicks DayQuil-NyQuil Cold-Flu 6.25-5-10-325 mg/15 mL Liquid, Sequential 0 ml PO DIRECTED Referrals Referrals: Valeria Jo MD [Primary Care Provider] -
[2024-01-29] MEDS ORDERED: VANCOMYCIN CONSULT ACTIVE PRN (23:07)
[2024-01-29] MEDS: PIPERACILLIN/TAZOBACTAM 4.5 GM/120 ML BAG IV ONE (23:56)
[2024-01-30] MEDS: VANCOMYCIN HCL 1,500 MG in SODIUM CHLORIDE 0.9% 500 ML IV ONE (00:27)
[2024-01-30] MEDS ORDERED: POLYETHYLENE (MIRALAX) 17 GM PACK PO PRN (02:26)
[2024-01-30] MEDS ORDERED: ALBUT/IPRATROP 3MG/0.5MG NEB 3 ML VIAL NEB PRN (02:26)
[2024-01-30] MEDS ORDERED: ONDANSETRON INJ 2 MG/ML 2 ML VIAL IV PRN (02:26)
[2024-01-30] MEDS ORDERED: MELATONIN 3 MG TAB PO PRN (02:26)
[2024-01-30] MEDS: POTASSIUM CHLORIDE / WTR 10 MEQ/100 ML PLCT IV SCH (03:33)
[2024-01-30] MEDS: OSELTAMIVIR PHOSPHATE 75 MG CAP PO SCH (03:34)
[2024-01-30] MEDS: BENZONATATE 100 MG CAPSULE PO PRN (03:36)
[2024-01-30 05:09] LABS: Basophils # (auto) 0.01 K/uL (0.00-0.20); Basophils % (auto) 0.1 %; Hematocrit (blood only) 33.1 % (37.0-47.0); Immature Granulocytes # (auto) 0.03 K/uL (0.01-0.20); Immature Granulocytes % (auto) 0.4 %; Lymphocytes # (auto) 0.85 K/uL (1.20-3.40); Lymphocytes % (auto) 10.8 %; Mean Corpuscular Hemoglobin 28.9 pg (25.0-34.0); Mean Corpuscular Hgb Conc 33.2 g/dL (32.0-36.0); Mean Corpuscular Volume 86.9 fL (80.0-100.0); Mean Platelet Volume 9.9 fL (9.4-12.4); Monocytes # (auto) 0.16 K/uL (0.11-0.59); Neutrophils # (auto) 6.83 K/uL (1.40-6.50); Neutrophils % (auto) 86.7 %; Platelet Count 362 K/uL (130-400); RDW Coefficient of Variation 13.4 % (11.5-14.5); RDW Standard Deviation 42.2 fL (36.4-46.3); Red Blood Count 3.81 M/uL (4.20-5.40); White Blood Count 7.88 K/ul (4.8-10.8)
[2024-01-30 05:12] LABS: Albumin Globulin Ratio 0.9 (0.9-2); Albumin Level 3.3 gm/dl (3.4-5.0); BUN Creatinine Ratio 14.7 (10-20); Bilirubin,Total 0.3 mg/dl (0.2-1.0); Creatinine Clr Calc Pharmacy 103.4 ml/min; Est GFR (African American) 121.4 ml/min; Est GFR (Non-African American) 104.7 ml/min; Globulin 3.5 gm/dl (2.5-4.0); Potassium 4.1 mmol/L (3.5-5.1); Total Protein 6.8 gm/dl (6.0-8.3)
[2024-01-30] MEDS: KETOROLAC TROMETHAMINE 15 MG/ML VIAL IV PRN (06:28)
[2024-01-30] MEDS: DEXTROMETHORPHAN POLYMR COMPLX 30 MG/5 ML UDP PO PRN (06:28)
--- NOTE | 2024-01-30 08:15 | Hospitalist Progress Note ---
Date of Service January 30, 2024 Assessment & Plan (1) Influenza B: Plan: -Ongoing symptoms for >2 weeks, completed outpatient course of Augmentin and prednisone without improvement -Tested positive for coronavirus, influenza B on admission -Although symptom timeline >2 weeks, patient had two recent negative flu tests as outpatient so this could be a more recent flu infection -Will start Tamiflu 01/30/24 -Chest x-ray unremarkable on 01/29/24 -D-dimer at 690, CTA chest: No evidence of pulmonary embolism, bibasilar airspace opacities noted, hilar lymphadenopathy likely reactive -WBC within normal limits, afebrile -- lower suspicion for bacterial infection at this time. -Guaifenesin, Tessalon Perles PRN -Received Methylprednisolone 125mg in ED. Will continue with Methylpred -Duonebs q4h PRN -3L O2 via NC while in ED -- weaned as tolerated. Now stable at 95% on room air (2) Coronavirus infection: Plan: Plan as state above (3) Rib pain: Plan: -Secondary to frequent coughing -Toradol PRN for pain (4) Hypokalemia: Plan: -Potassium of 3.3 on admission -Potassium repleted with 3 bags of 10 meq in ED - recheck potassium of 4.1 on 01/30/24 (5) Methamphetamine dependence in remission: Plan: -Patient reports she has not used methamphetamine for almost 3 years after prior methamphetamine use -Continue Buprenorphine 8mg SL BID -PDMP verifies same prescription, prescribed by [facility] Plan Diet: Regular VTE Prophylaxis: SCDs Code Status: Full Code Admission and Anticipated Discharge Date Admission Date: January 29, 2024 Physical Exam Physical Exam: ... Results & Data Results & Data Vital Signs (Past 12 Hours) Vital Signs Temp Pulse Pulse Resp BP BP Pulse Ox 01/30/24 05:25 36.5 C 53 L 16 127/72 95 01/30/24 04:00 51 L 17 94 01/30/24 03:42 01/30/24 03:00 50 L 16 101/55 L 96 01/30/24 02:00 51 L 14 105/64 96 01/30/24 01:00 60 16 114/53 L 93 01/30/24 00:12 36.9 C 20 121/69 93 01/30/24 00:00 70 16 121/69 95 01/29/24 23:00 75 14 141/73 H 95 01/29/24 22:44 62 01/29/24 22:00 61 16 114/48 L 94 01/29/24 21:00 74 22 120/64 90 01/29/24 20:30 59 L 16 117/59 L 94 O2 Del Method O2 Flow Rate 01/30/24 05:25 Room Air 01/30/24 04:00 Room Air 01/30/24 03:42 Room Air 01/30/24 03:00 Room Air 01/30/24 02:00 Room Air 01/30/24 01:00 Room Air 01/30/24 00:12 Room Air 01/30/24 00:00 Room Air 01/29/24 23:00 Nasal Cannula 2 01/29/24 22:44 01/29/24 22:00 Nasal Cannula 3 01/29/24 21:00 Nasal Cannula 3 01/29/24 20:30 Nasal Cannula 3 Laboratory Results Reviewed CBC Reviewed CMP Reviewed respiratory BioFire Diagnostic Findings Reviewed chest CTA Reviewed CXR PG Care Time/CCT Total # of Minutes Spent Total Time Spent with Patient: Total time spent is greater than 50% in coordination of care (as documented) at patient's floor/unit and/or counseling patient: Coding Diagnoses Influenza B J10.1 Coronavirus infection B34.2 Rib pain R07.81 Hypokalemia E87.6 Methamphetamine dependence in remission F15.21
[2024-01-30] MEDS: methylPREDNISolone 40 MG in SYRINGE 0 ML IV SCH (08:23)
[2024-01-30] MEDS: buprenorphine HCL 8 MG SUBL SL SCH (08:23)
[2024-01-30] MEDS: VANCOMYCIN HCL 1,000 MG in SODIUM CHLORIDE 0.9% 250 ML IV SCH (08:23)
--- NOTE | 2024-01-30 08:34 | Electrocardiogram Report ---
Test Reason : Blood Pressure : / mmHG Vent. Rate : 054 BPM Atrial Rate : 054 BPM P-R Int : 128 ms QRS Dur : 078 ms QT Int : 434 ms P-R-T Axes : -18 -32 -19 degrees QTc Int : 411 ms Sinus bradycardia Left axis deviation Minimal voltage criteria for LVH, may be normal variant ( R in aVL ) Abnormal ECG No previous ECGs available Confirmed by Vikash Wright ([id number]) on 01/30/2024 8:34:13 AM Referred By: REFERRED SELF Confirmed By:Vikash Wright
[2024-01-30] MEDS: guaiFENesin 600 MG TABCR PO SCH (09:22)
--- NOTE | 2024-01-30 15:07 | Discharge Summary ---
Date of Service January 30, 2024 Admission HPI Per Admitting Provider Jennifer Aguirre is a 33 year-old female without significant past medical history who presented to the ED with concern of shortness of breath. She states that she has had ongoing cough and chest/rib pain secondary to her cough for several weeks. She was seen at urgent care and prescribed Augmentin which she finished >1 week ago, then went to urgent care again and was diagnosed with pleurisy and given a course of prednisone which she finished two days ago. She notes that she did have a GI illness several weeks ago and had several episodes of vomiting, and has also had several coughing fits that induce vomiting. Denies any current nausea or diarrhea. Endorses chest pain around her breasts and upper ribs that is worse with coughing. She states her cough is currently nonproductive but after receiving breathing treatments in the ED she feels that "things are loosening up." Patient states that she quit cigarette smoking three years ago but does vape daily. ED Course: -CXR, CTA chest -Duoneb x2 -Toradol Admission Exam Per Admitting Provider Constitutional: WD/WN, vitals as above Eyes: + anicteric sclerae; no conjunctival abn ormality ENMT: Ears: no external ear abnormality Nose: no external nose abnormality Erythematous oropharynx Respiratory: + cough; no respiratory distress Auscul tation: + wheezes Cardiovascular: Rate/Rhythm: regular rate and regular rhythm Gastrointestinal (Abdomen): Inspection/Auscultation: abdomen normal to inspection; abdomen not distended Percussion/Palpation: abdomen soft; abdomen nontender and no guarding Musculoskeletal: Moves all limbs independently Skin: no rashes, warm and dry Neurologic: no focal motor deficits Psychiatric: A+Ox3, euthymic affect Lymphatic: no cervical lymphadenopathy Principal Diagnosis Influenza B Coronavirus Hypokalemia Discharge Exam General: No acute distress, nondiaphoretic, well-developed, well-nourished. Skin: The skin was without rashes, erythema, edema, or bruising. Cardiac: Regular rate and rhythm without murmurs gallops or rubs. Pulm: + Cough, unproductive. Clear to auscultation bilaterally without wheezes, rales or rhonchi. No retractions or accessory muscle use. Abdominal: Positive bowel sounds x 4. Soft, nontender, without masses or organomegaly. No guarding or rebound tenderness. Neuro: A&O x3. No focal neurological deficits. Discharge Data Allergies Allergy/AdvReac Type Severity Reaction Status Date / Time morphine Allergy Mild Unknown Verified 01/29/24 22:11 acetaminophen Allergy Unknown itch Verified 01/29/24 22:11 codeine Allergy Unknown itch Verified 01/29/24 22:11 Consultations 01/29/24 21:23 ED Decision to Admit Stat Ordered Studies 01/29/24 19:58 CT angio chest PE protocol Stat IMPRESSION: 1. No pulmonary embolus. 2. Bibasilar airspace opacities are concerning for atypical infection and/or aspiration. 3. Interseptal thickening is also noted, nontender superimposed pulmonary edema. 4. Hilar lymphadenopathy measures up to 0.6 cm. This is likely reactive, although nonspecific. Chest X-Ray IMPRESSION: No active disease in the chest. Hospital Course (1) Influenza B: -Ongoing symptoms for >2 weeks, completed outpatient course of Augmentin and prednisone without improvement -Tested positive for coronavirus, influenza B on admission -Although symptom timeline >2 weeks, patient had two recent negative flu tests as outpatient so this could be a more recent flu infection -Will start Tamiflu 01/30/24 -Chest x-ray unremarkable on 01/29/24 -D-dimer at 690, CTA chest: No evidence of pulmonary embolism, bibasilar airspace opacities noted, hilar lymphadenopathy likely reactive -WBC within normal limits, afebrile -- lower suspicion for bacterial infection at this time. -Tessalon Perles PRN -Received Methylprednisolone 125mg in ED. Continue with Methylpred -Duonebs q4h PRN -3L O2 via NC while in ED -- weaned as tolerated. Now stable at 95% on room air Continue Tamiflu until on 02/04/2024 Prednisone taper --start on 01/31/2024 and continue through 02/07/2024 Tessalon Perles as needed Codeine cough syrup as needed. Had thorough discussion with patient about taking a cough suppressant with codeine due to history of methamphetamine dependence. Patient reports she is in a good place in her recovery and continues to see recovery counselor and does not have concerns about using this cough syrup. Albuterol inhaler as needed (2) Coronavirus infection: Plan as state above (3) Rib pain: -Secondary to frequent coughing -Toradol PRN for pain while in the hospital Ibuprofen and Tylenol as needed at home for pain relief (4) Hypokalemia: -Potassium of 3.3 on admission -Potassium repleted with 3 bags of 10 meq in ED - recheck potassium of 4.1 on 01/30/24 (5) Methamphetamine dependence in remission: -Patient reports she has not used methamphetamine for almost 3 years after prior methamphetamine use -Continue Buprenorphine 8mg SL BID -PDMP verifies same prescription, prescribed by [facility] Plan Code Status: Full Code Total Time Total Time Spent Total Time Spent (In Minutes): Greater than 30 minutes spent completing this discharge process including direct patient care, medication reconciliation, documentation, review of labs and images, and coordination of care. Discharge Plan Discharge Items Patient Disposition: Home - Self-Care Reason For Visit: COUGH Discharge Diagnosis: Influenza B Coronavirus Costochondritis Activity: Resume your previous activity Non-emergency contact: Primary Care Provider Call non-emergency contact if: your symptoms worsen Follow-up/Referrals: Valeria Jo MD [Primary Care Provider] - Diet: Regular Addtl Attending Provider Instructions: You were admitted to the hospital for influenza B (flu) and coronavirus (COVID) infections. These are both respiratory viruses that spread through the air and droplets when someone coughs, sneezes, laughs, or talks. You had a chest x-ray that showed no acute findings as well as a chest CT scan which showed no evidence of a pulmonary embolism, but hilar lymphadenopathy which is most likely reactive to your current infections. You also were found to have low potassium (hypokalemia) on your lab work. You were given supplemental potassium while in the emergency department, and your potassium on day of discharge was back within normal limits. Listed below are your medications on discharge: Tamiflu: This should be taken twice a day, with your last dose being on February 04, 2024. Prednisone: This will be a prednisone taper -- start on 01/31/24. Take 40 mg (4 pills) for 2 days, 30 mg (3 pills) for 2 days, 20 mg (2 pills) for 2 days, and then 10 mg (1 pill) for 2 days. Tessalon Perles: These are to be used as needed for cough suppression. Codeine cough syrup: This is for cough suppression. It should be noted that codeine can be addictive, so use caution while taking it. Albuterol inhaler: This is to be used as needed. Tylenol and ibuprofen: These are rpfy-rgd-yqwzzyz medications you can take to alleviate the rib pain caused by excessive coughing. Wash your hands often. Do this especially after coughing or sneezing. If you cannot wash her hands, clean her hands with a hand cleanser that has at least 60% alcohol. Do not share food, utensils, drink glasses, or toothbrush with others. You can make an appointment with your PCP to discuss your recent infections and hospital course. Additionally, you can contact them if your symptoms do not improve. Please return to the hospital if you experience shortness of breath, difficulty breathing, chest pain, lightheadedness, or sustained fever. Pending Studies at Discharge: No Stand-Alone Forms: My [facility], Smoking Cessation Medications and DC Order Prescriptions: New oseltamivir [Tamiflu] 75 mg Capsule 75 mg PO BID 5 Days Qty: 10 0RF albuterol sulfate 90 mcg/actuation HFA aerosol inhaler 1 inh inhalation Q6H PRN (Reason: shortness of breath or wheezing) Qty: 6.7 0RF benzonatate 100 mg Capsule 200 mg PO Q8H PRN (Reason: cough) 10 Days Qty: 30 0RF codeine-guaifenesin 10-100 mg/5 mL liquid 10 ml PO Q4H PRN (Reason: cough) Qty: 120 0RF prednisone 10 mg tablet See Taper PO DIRECTED Qty: 20 0RF Taper: Taper, Blank 40 mg DAILY IN THE MORNING for 2 Days 30 mg DAILY IN THE MORNING for 2 Days 20 mg DAILY IN THE MORNING for 2 Days 10 mg DAILY IN THE MORNING for 2 Days Rx Instructions: see taper instructions Continued dextromethorphan polistirex [Delsym 12 hour] 30 mg/5 mL Suspension,Extended Rel 12 Hr 0 ml PO Q12H PRN (Reason: .cough/cold) pseudoephedrine HCl [Sudafed] 30 mg Tablet 0 mg PO Q6H PRN (Reason: .flu symptoms) buprenorphine HCl 8 mg tablet, sublingual 8 mg SUBLINGUAL BID drospirenone-ethinyl estradiol 3-0.02 mg tablet 1 tab PO DAILY Jean DayQuil-NyQuil Cold-Flu 6.25-5-10-325 mg/15 mL Liquid, Sequential 0 ml PO DIRECTED Discharge Orders: Discharge Order (Routine); Ordered 01/30/24 Ordered By: Karla Melo/Other Patient Handouts: The Flu (Influenza) Admission Data Admit Date/Time: 01/29/24 22:18 Attending Provider: Nick Jordan Admit Provider: Krystle Nickerson Primary Care Provider: Valeria Jo Other Providers: Mauricio Mujica Other Interventions: Discharge Summary Assessment (RN) Last Done: 01/30/24 15:03 Coding Level of Care Code 36134 INP/OBS DISCH >30 MIN Diagnoses Influenza B J10.1 Coronavirus infection B34.2 Rib pain R07.81 Hypokalemia E87.6 Methamphetamine dependence in remission F15.21
--- NOTE | 2024-01-30 15:41 | Billing Data ---
Date of Service January 30, 2024 Coding Level of Care Code 79105 INT INP/OBS CARE
--- OUTSIDE RECORDS SUMMARY | 2024-01-30 18:06 | External Medical Summary | Summary of Care ---
Author Name Unknown Organization [facility] Address [address] [place] [address] Phone [phone] Care Team Providers Care Folder Operator Name Role Phone Unavailable Primary Care Provider Unavailabl e Reason for Visit * Reason Onset Date Comments Medication Refill 10/06/2023 Encounter Details Date Type Department Care Team (Late st Contact Info) Description 10/06/2023 Refill Gynecology/Obstetrics [facility] [address] [place] [phone] Laura Lund PA-C [address] [place] [phone] Encounter for surveillance of contraceptive pills Allergies Active Allergy Reactions Criticality Noted Date Comments Morphine And Related 02/08/2009 Tylenol with codeine causes itching documented as of this encounter (statuses as of 10/07/2023) Medications Medication Sig Dispensed Refills Start Date End Date Status Norethin Sanjeev-Eth Estrad-FE 1-20 MG-MCG Oral TabletIndications:Encou nter for surveillance of contraceptive pills Take 1 Tablet by mouth in the morning. 28 Tablet 2 07/21/2023 Active documented as of this encounter (statuses as of 10/07/2023) Active Problems Patient Care Coordination No te Formatting of this note is d ifferent from the original. 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 PART EPILAPSY;W/O IMP CONSCIOUS;W/O INTRACTABLE 10/07/2004 Ovarian cyst documented as of this encounter (statuses as of 10/07/2023) Resolved Problems Problem Noted Date Diagnosed Date Resolved Date Encounter for supervision of normal in multigravida 01/26/2019 07/08/2019 Overview: Problem Action Taken Date entered Entered by Date resolved Smoking/tobacco abuse Smoking Education-pt states she has cut done from 10 cigarettes a day to 3-5 01/26/2019 Asmita Kirk, SADE 01/26/19 Home Health Pt declines need for Home Helath Care 01/26/2019 Asmita Kirk RN 01/26/19 Education Pt declines need for classes-3rd 01/26/2019 Asmita Kirk RN 01/26/19 Nutrition Discussed WIC-pt plans on applying for WIC-due date letter given. Pt already is receiving food stamps-due date letter given 01/26/2019 Asmita Kirk RN 01/26/19 First Trimester Education and questions First trimester education and first trimester questions completed 01/26/2019 Asmita Kirk RN 01/26/19 Problem Action Taken Date entered Entered by Date resolved Current needs or questions Patient denies having any current needs or questions 03/28/2019 Carolyn Abdul, SADE 03/28/2019 Education Reviewed second trimester education w/pt 03/28/2019 Carolyn Abdul RN 03/28/2019 Problem Action Taken Date entered Entered by Date resolved Current needs or questions Patient denies having any current needs or questions 04/27/2019 Elizabeth Pacheco RN 04/27/2019 Problem Action Taken Date entered Entered by Date resolved 3rd trimester 3rd trimester questions and education done 05/23/2019 Asmita Kirk RN 05/23/19 Problem Action Taken Date entered Entered by Date resolved Smoking/tobacco abuse Pt staes she is down to 3-4 cigarettes a day-encouraged to keep trying to cut down/quit 06/20/2019 Asmita Kirk RN 06/19/19 Readiness Page completed 06/20/2019 Asmita Kirk RN 06/19/19 Jas Mckeon contractions Pt having increased BH contractions/pressure- encouraged to increase her fluids 06/20/2019 Asmita Kirk RN 06/19/19 Problem Action Taken Date entered Entered by Date resolved History of labor/pt c/o contx and increased pelvic pressure Discussed and evaluated by provider 06/29/2019 Carolyn Abdul RN 06/29/2019 Smoking/tobacco abuse Smoking Education-reviewed w/pt 06/29/2019 Carolyn Abdul RN 06/29/2019 Tdap vaccine administered, 05/23/2019 Asmita Kirk RN Tobacco smoking complicating 01/26/2019 07/08/2019 Overview: Began patch at [facility] Carrier of group B Streptococcus 11/20/2015 12/21/2015 Overview: + RV cx completed at [facility]&D 11/19/15 GBS (group B Streptococcus c arrier), +RV culture, currently 11/19/2015 01/26/2019 Overview: Culture was done at [facility] by myself on 11/14 Positive fibronectin a t 22 weeks to 34 weeks gestation 10/23/2015 12/21/2015 Overview: Betamethasone given 10/23/15 INFORMATION 10/22/2015 01/26/2019 Overview: +FFN at 30wks Abnormal Pap smear of cervix 05/29/2015 07/08/2019 Overview: 12/2018 @ [facility]- LGSIL can not r/o HGSIL, +HR HPV. Recommend colpo in 2nd tri Supervision of other normal 05/10/2015 12/21/2015 Overview: 10/03/2015 Tdap Vaccine administered per clinic protocol. Pt given VIS(vaccine information sheet) Carolyn Abdul RN Smoking/tobacco abuse Smoking Education Has decreased from 10-20 down to 2 per day 05/09/2015 Elizabeth Pacheco RN education Discussed PNC. Denies any need 05/09/2015 Elizabeth Pacheco RN Home nursing Denies any need 05/09/2015 Elizabeth Pacheco RN Problem Action Taken Date entered Entered by Date resolved Reviewed problem list No changes noted 06/06/2015 Carolyn Abdul RN Problem Action Taken Date entered Entered by Date resolved Current needs or questions Patient denies having any current needs or questions 07/18/2015 Carolyn Abdul RN Problem Action Taken Date entered Entered by Date resolved Smoking/tobacco abuse Smoking Education 08/15/2015 Julia Hankins RN She has decreased smoking down to 2-3 daily Problem Action Taken Date entered Entered by Date resolved Current needs or questions Patient denies having any current needs or questions 10/03/2015 Carolyn Abdul RN Problem Action Taken Date entered Entered by Date resolved Positive ffn Reviewed sign and symptoms of labor and when to call office 10/23/2015 Carolyn Abdul RN Problem Action Taken Date entered Entered by Date resolved Current needs or questions Patient denies having any current needs or questions 11/01/2015 Elizabeth Pacheco RN Problem Action Taken Date entered Entered by Date resolved Pt c/o irreg contx Pt will discuss with provider today 11/14/2015 Carolyn Abdul RN 11/14/15 Problem Action Taken Date entered Entered by Date resolved Current needs or questions Patient denies having any current needs or questions 11/20/2015 Elizabeth Pacheco RN ICD-10 update of inactive term Tobacco smoking complicating 05/09/2015 12/21/2015 Overview: Decreased to 2cig/day at [facility]; intends to quit documented as of this encounter (statuses as of 10/07/2023) Immunizations Name Administration Dates Next Due H1N1 2009 Influenza, IM 08/30/2009 Meningococcal Conjugate Vaccine (Menactra/Menveo ) 09/27/2007 PPD 07/05/2014,07/16/2012 Seasonal Influenza, Quadrivalent, No Preserve, I M 09/12/2015 Seasonal Influenza, Split, IIV3, With Preserve, Inj 07/31/2011,09/27/2007 TDAP (age 10 and older)(Boostrix) 05/23/2019,02/2015 TDAP (age 11 and older)(Adacel) 07/01/2011 documented as of this encounter Social History Tobacco Use Types Packs/Day Years Used Date Smoking Tobacco: Former Cigarettes 0.3 8 Q uit: 08/2021 Smokeless Tobacco: Never Comments:3-4 per day Alcohol Use Standard Drinks/Week Comments No 0 (1 standard drink = 0.6 oz pur e alcohol) occasional PHQ-2 Answer Date Recorded PHQ-2 Score 0 10/03/2018 [place] Depression Scale Answer Date Recorded [place] Depression Scale Score 0 08/17/2019 The thought of harming myself has occurred to me . (Pt Reported) 08/17/2019 Sex and Gender Information Value Date Recorded Sex Assigned at Not on file Gender Identity Not on file Sexual Orientation Not on file Job Start Date Occupation Industry Not on file Not on file Not on file documented as of this encounter Miscellaneous Notes * Telephone Encounter - Elizabeth Pacheco RN - 10/07/2023 9:07 AM ESTRefused Prescriptions: Disp Refills Norethin Sanjeev-Eth Estrad-FE 1-20 MG-MCG Ora*28 Tab*2 Sig: Take 1Tablet by mouth in the morning.Refused By: ELIZABETH PACHECO for Refusal: Patient Should Contact Provider First * Telephone Encounter - Elizabeth Pacheco RN - 10/07/2023 8:58 AM EST See prior encounters. Pt had abn pap and needed colpo as well as discussion of BRCA gene with physician but no showed. Refill denied asking pt to call office. documented in this encounter Plan of Treatment Health Maintenance Due Date Last Done Comments COVID-19 Vaccine (#1) 1990 Hepatitis C Screening 2008 Depression Screening 01/26/2020 01/26/2019 Influenza Vaccine (FLU shot) (#1) 2023 09/12/2015, 07/31/2011, 08/30/2009, Additional history exists Pap Smear 07/21/2026 07/21/2023, 05/30, 08/17/2019, Additional history exists Cervical Cancer Screening 07/21/2028 HPV/Co-Test 07/21/2028 07/21/2023 DTaP,Tdap,and Td Vaccines (8 - Td or Tdap) 05/23/2029 05/23/2019, 10/03/2015, 07/01/2011, Additional history exists Hepatitis B Completed 09/08/1994, 06/30, 12/25/1992 MENINGOCOCCAL (MENACTRA/MENVEO) Completed 09/27/2007 GARDASIL-HPV IMMUNIZATION SERIES Aged Out No longer eligible based on patient's age to complete this topic Pneumococcal Vaccine: Pediatrics (0 to 5 Years) and At-Risk Patients (6 to 64 Years) Aged Out No longer eligible based on patient's age to complete this topic documented as of this encounter Medical Devices Not on filedocumented as of this encounter Visit Diagnoses Diagnosis Encounter for surveillance of contraceptive pills Surveillance of previously prescribed contraceptive pill documented in this encounter
--- OUTSIDE RECORDS SUMMARY | 2024-01-30 18:06 | External Medical Summary | Summary of Care ---
Author Name Unknown Organization [facility] Address [address] [facility] [place] [address] Phone [phone] Care Team Providers Care Chemistry Faculty Member Name Role Phone Unavailable Primary Care Provider Unavailabl e Encounter Details Date Type Department Care Team (Late st Contact Info) Description 10/20/2023 Refill Gynecology/Obstetrics [facility] [address] [place] [phone] Laura Lund PA-C [address] [place] [phone] Encounter for surveillance of contraceptive pills Allergies Active Allergy Reactions Criticality Noted Date Comments Morphine And Related 02/08/2009 Tylenol with codeine causes itching documented as of this encounter (statuses as of 01/11/2024) Medications Medication Sig Dispensed Refills Start Date End Date Status Norethin Sanjeev-Eth Estrad-FE 1-20 MG-MCG Oral TabletIndications:Encou nter for surveillance of contraceptive pills Take 1 Tablet by mouth in the morning. 28 Tablet 2 07/21/2023 Active documented as of this encounter (statuses as of 01/11/2024) Active Problems Patient Care Coordination No te [...] as of this encounter (statuses as of 01/11/2024) Resolved Problems Problem Noted Date Diagnosed Date Resolved Date Encounter for supervision of normal in multigravida 01/26/2019 07/08/2019 Overview: Problem Action Taken Date entered Entered by Date resolved Smoking/tobacco abuse Smoking Education-pt states she has cut done from 10 cigarettes a day to 3-5 01/26/2019 Asmita Kirk RN 01/26/19 Home Health Pt declines need for [...] any current needs or questions 03/28/2019 Carolyn Abdul RN 03/28/2019 Education Reviewed second trimester education w/pt 03/28/2019 Carolyn Abdul RN 03/28/2019 Problem Action Taken Date entered Entered by Date resolved Current needs or questions Patient denies having any current needs or questions 04/27/2019 Felicita Lara RN 04/27/2019 Problem Action Taken Date entered [...] complicating 01/26/2019 07/08/2019 Overview: Began patch at [facility] Carrier of group B Streptococcus 11/20/2015 12/21/2015 Overview: + RV cx completed at L&D 11/19/15 GBS (group B Streptococcus c arrier), +RV culture, currently 11/19/2015 01/26/2019 Overview: Culture was done at [facility] by myself on 11/14 Positive fibronectin a [...] 10-20 down to 2 per day 05/09/2015 Felicita Lara RN education Discussed PNC. Denies any need 05/09/2015 Felicita Lara RN Home nursing Denies any need 05/09/2015 Felicita Lara, RN Problem Action Taken Date entered Entered [...] having any current needs or questions 11/01/2015 Felicita Lara RN Problem Action Taken Date entered Entered by Date resolved Pt c/o irreg contx Pt will discuss with provider today 11/14/2015 Carolyn Abdul RN 11/14/15 Problem Action Taken Date entered Entered by Date resolved Current needs or questions Patient denies having any current needs or questions 11/20/2015 Felicita Lara RN ICD-10 update of inactive term Tobacco smoking complicating 05/09/2015 12/21/2015 Overview: Decreased to 2cig/day at [facility]; intends to quit documented as of this encounter (statuses as of 01/11/2024) Immunizations Name Administration Dates Next Due H1N1 [...] Answer Date Recorded PHQ-2 Score 0 10/03/2018 [place] Depression Scale Answer Date Recorded [place] Depression Scale Score 0 08/17/2019 The thought [...] encounter Miscellaneous Notes * Telephone Encounter - Felicita Lara RN - 01/11/2024 4:22 PM EST Will close encounter and await pts call back. * Telephone Encounter - Leilani Silva MED ASSIST - 01/11/2024 1:58 PM EST Pending Prescriptions: Disp Refills Norethin Sanjeev-Eth Estrad-FE 1-20 MG-MCG Ora*84 Tab*3 Sig: Take 1 Tablet by mouth in the morning. * Telephone Encounter - Leilani Silva MED ASSIST - 01/11/2024 1:58 PM EST LMOM #2 * Telephone Encounter - Leilani Silva MED ASSIST - 01/08/2024 1:08 PM EST LMOM * Telephone Encounter - Jillian Nowak RN - 10/20/2023 12:53 PM EST Received refill request from [facility] [place] for patient. Last seen by Laura 06/2023. Pended 1 year of refills. Please schedule future visit , will then forward to provider. documented in this encounter Plan of Treatment [...]
--- OUTSIDE RECORDS SUMMARY | 2024-01-30 18:07 | External Medical Summary | Summary of Care ---
Author Name Unknown Organization [facility] Address [address] [place] [address] Phone [phone] Care Team Providers Care Information Systems Supervisor Name Role Phone Unavailable Primary Care Provider Unavailabl e Encounter Details Date Type Department Care Team (Late st Contact Info) Description 09/22/2023 Orders Only Outcomes Research Department [address] [place] [address] Rosa Elena Lundberg CHRA MyCRicebook Research Other*[id number] Allergies Active Allergy Reactions Criticality Noted Date Comments Morphine And Related 02/08/2009 Tylenol with codeine causes itching documented as of this encounter (statuses as of 09/22/2023) Medications Medication Sig Dispensed Refills Start Date End Date Status Norethin Sanjeev-Eth Estrad-FE 1-20 MG-MCG Oral TabletIndications:Encou nter for surveillance of contraceptive pills Take 1 Tablet by mouth in the morning. 28 Tablet 2 07/21/2023 Active documented as of this encounter (statuses as of 09/22/2023) Active Problems Patient Care Coordination No te [...] as of this encounter (statuses as of 09/22/2023) Resolved Problems Problem Noted Date Diagnosed Date [...] Pt declines need for classes-3rd 01/26/2019 Asmita Kirk, RN 01/26/19 Nutrition Discussed WIC-pt plans on [...] 11/19/2015 01/26/2019 Overview: Culture was done at [facility] by myself on 11/14 Positive fibronectin a [...] down to 2 per day 05/09/2015 Felicita Lara, SADE education Discussed PNC. Denies any need 05/09/2015 Felicita Lara, SADE Home nursing Denies any need 05/09/2015 Felicita Lara, SADE Problem Action Taken Date entered Entered by Date resolved Reviewed problem list No changes noted 06/06/2015 Carolyn Abdul RN Problem Action Taken Date entered Entered by Date resolved Current needs or questions Patient denies having any current needs or questions 07/18/2015 Carolyn Abdul RN Problem Action Taken Date entered Entered by Date resolved Smoking/tobacco abuse Smoking Education 08/15/2015 Julia Hankins, SADE She has decreased smoking down to 2-3 [...] as of this encounter (statuses as of 09/22/2023) Immunizations Name Administration Dates Next Due H1N1 [...] = 0.6 oz pur e alcohol) occasional Sex and Gender Information Value Date Recorded Sex Assigned at Not on file Gender Identity Not on file Sexual Orientation Not on file Job Start Date Occupation Industry Not on file Not on file Not on file documented as of this encounter Plan of Treatment Scheduled Orders Name Type Priority Associated Diagnoses Orde r Schedule MYCODE SUBSEQUENT ADULT Lab Routine My[facility] Research Other*[id number] Every 6 Months for 2 Occurrences starting 09/22/2023 until 10/11/2024 Health Maintenance Due Date Last Done Comments [...] as of this encounter Visit Diagnoses Diagnosis [facility] Research Other*[id number] documented in this encounter
--- OUTSIDE RECORDS SUMMARY | 2024-01-30 18:07 | External Medical Summary | Summary of Care ---
Author Name Unknown Organization [facility] Address [address] [facility] [place] [address] Phone [phone] Care Team Providers Care Animal Herder Name Role Phone Unavailable Primary Care Provider Unavailabl e Encounter Details Date Type Department Care Team Description 07/30/2023 Telephone [facility] [address] [place] [phone] Laura Lund PA-C [address] [place] [phone] Allergies Active Allergy Reactions Severity Noted Date Comments Morphine And Related 02/08/2009 Tylenol with codeine causes itching documented as of this encounter (statuses as of 08/17/2023) Medications Medication Sig Dispensed Refills Start Date End Date Status Norethin Sanjeev-Eth Estrad-FE 1-20 MG-MCG Oral TabletIndications:Encou nter for surveillance of contraceptive pills Take 1 Tablet by mouth in the morning. 28 Tablet 2 07/21/2023 Active documented as of this encounter (statuses as of 08/17/2023) Active Problems Patient Care Coordination No te Formatting of this note is d ifferent from the original. 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 PART EPILAPSY;W/O IMP CONSCIOUS;W/O INTR ACTABLE 10/07/2004 Ovarian cyst documented as of this encounter (statuses as of 08/17/2023) Resolved Problems Problem Noted Date Resolved Date Encounter for supervision of [...] Page completed 06/20/2019 Asmita Kirk RN 06/19/19 [place] Mckeon contractions Pt having increased BH contractions/pressure- encouraged to increase her fluids 06/20/2019 Asmita Kirk RN 06/19/19 Problem Action Taken Date entered Entered by Date resolved History of labor/pt c/o contx and increased pelvic pressure Discussed and evaluated by provider 06/29/2019 Carolyn Abdul RN 06/29/2019 Smoking/tobacco abuse Smoking Education-reviewed w/pt 06/29/2019 Carolyn Abdlu RN 06/29/2019 Tdap vaccine administered, 05/23/2019 Asmita Kirk RN Tobacco smoking complicating 9 07/08/2019 Overview: Began patch at [facility] Carrier of group B Streptococcus 11/20/2015 12/21/2015 Overview: + RV cx completed at [facility] 11/19/15 GBS (group B Streptococcus c arrier), +RV culture, currently 11/19/2015 01/26/2019 Overview: Culture was done at [facility] by myself on 11/14 Positive fibronectin at 22 weeks to 34 wee ks gestation 10/23/2015 12/21/2015 Overview: Betamethasone given 10/23/15 INFORMATION 10/22/2015 01/26/2019 Overview: +FFN at 30wks Abnormal Pap smear of cervix 05/29/201507/2019 Overview: 12/2018 @ [facility]- LGSIL can not [...] Home nursing Denies any need 05/09/2015 Felicita Lara RN Problem Action Taken Date [...] update of inactive term Tobacco smoking complicating 5 12/21/2015 Overview: Decreased to 2cig/day at [facility]; intends to quit documented as of this encounter (statuses as of 08/17/2023) Immunizations Name Administration Dates Next Due DTP Vaccine 1990,1990 DTaP Dipth/Tet/Acell Pertussis (Infanrix), Peds 07/25/1996,09/08/1994,12/25/1992 H1N1 2009 Influenza, IM 08/30/2009 Haemophilius B (HIB), unspecified 12/25/1992, Hepatitis B Vaccine 09/08/1994,07/18/1993,1992 MMR - Measles/Mumps/Rubella Vaccine 07/25/1996,0 12/25/1992 Meningococcal Conjugate Vacc ine (Menactra/Menveo) 09/27/2007 OPV - Polio Virus Vaccine (Oral) 994,12/25/1992,1990,08/17 PPD 07/05/2014,07/16/2012 Seasonal Influenza, Quadriva lent, No Preserve, IM 09/12/2015 Seasonal Influenza, Split, I IV3, With Preserve, Inj 07/31/2011,09/27/2007 TB Ying Test 02/12/1998,09/08/1994,12/25/1992 TD - Tetanus/Diptheria (ADULT) 02/21/2004 TDAP (age 10 and older)(Boostrix) 05/23/2019,02/2015 TDAP (age 11 and older)(Adacel) 07/01/2011 Varicella Vaccine (Chicken Pox) 07/25/1996 documented as of this encounter Social History Tobacco Use Types Packs/Day Years Used Date Smoking Tobacco: Former Cigarettes 0.3 8 Q uit: 08/2021 Smokeless Tobacco: Never Comments:3-4 per day Alcohol Use Standard Drinks/Week Comments No 0 (1 standard drink = 0.6 oz pur e alcohol) occasional Sex Assigned at Date Recorded Not on file Job Start Date Occupation Industry Not on file Not on file Not on file documented as of this encounter Miscellaneous Notes * Telephone Encounter - Laura Lund PA-C - 08/17/2023 9:01 AM EDT Please attempt to call 1 more time. If no response, please send certified letter ensuring she is aware of results and need for return appointment due to concern for cervical cancer. * Telephone Encounter - Jillian Nowak RN - 07/31/2023 9:00 AM EDT Attempted to call patient. No answer, LVM to return call. Sent certified letter. Patient had same results in 2020 and never responded to calls or followed up. * Telephone Encounter - Lynette Cruz LPN - 07/30/2023 11:24 AM EDT left message for patient to call office * Telephone Encounter - Lynette Cruz LPN - 07/30/2023 10:38 AM EDT ----- Message from Laura Lund PA-C sent at 07/30/2023 7:18 AM EDT ----- Pt with persistent HSIL/+HPV pap smear. She needs MD visit for colpo and possible treatment discussion as soon as possible. Please make her aware and assist in scheduling this as soon as you can. Laura Lund PA-C documented in this encounter Plan of Treatment Upcoming Encounters Date Type Specialty Care Team Description 08/31/2023 Office Visit Gynecology Obstetrics Lincoln Alejandra MD [address] [place] [phone] Health Maintenance Due Date Last Done Comments [...]
--- OUTSIDE RECORDS SUMMARY | 2024-01-30 18:07 | External Medical Summary | Summary of Care ---
Author Name Unknown Organization [facility] Address [address] [facility] [place] [address] Phone [phone] Care Team Providers Care Vendor Management Consultant Name Role Phone Unavailable Primary Care Provider Unavailabl e Encounter Details Date Type Department Care Team Description 07/30/2023 Telephone [facility] [address] [place] [address] Laura Lund PA-C [address] [place] [phone] Allergies Active Allergy Reactions Severity Noted Date [...] Page completed 06/20/2019 Asmita Kirk RN 06/19/19 [place] Mckeon contractions Pt having increased BH contractions/pressure- [...] 11/19/2015 01/26/2019 Overview: Culture was done at [facility] by myself on 11/14 Positive fibronectin [...] encounter Miscellaneous Notes * Telephone Encounter - Jillian Nowak RN - 08/17/2023 9:27 AM EDT Attempted to call patient. No answer, LVM and sent certified letter. * Telephone Encounter - Laura Lund PA-C [...] Visit Gynecology Obstetrics Lincoln Alejandra MD [address] [facility] [place] [address] Health Maintenance Due Date Last Done Comments [...]
--- OUTSIDE RECORDS SUMMARY | 2024-01-30 18:07 | External Medical Summary | Summary of Care ---
Author Name Unknown Organization [facility] Address [address] [facility] [place] [address] Phone [phone] Care Team Providers Care Telegraphic Typewriter Operator Name Role Phone Unavailable Primary Care Provider Unavailabl e Encounter Details Date Type Department Care Team Description 07/30/2023 Telephone [facility] [address] [place] [address] Laura Lund PA-C [address] [place] [phone] Allergies Active Allergy Reactions Severity Noted Date Comments Morphine And Related 02/08/2009 Tylenol with codeine causes itching documented as of this encounter (statuses as of 08/31/2023) Medications Medication Sig Dispensed Refills Start Date End Date Status Norethin Sanjeev-Eth Estrad-FE 1-20 MG-MCG Oral TabletIndications:Encou nter for surveillance of contraceptive pills Take 1 Tablet by mouth in the morning. 28 Tablet 2 07/21/2023 Active documented as of this encounter (statuses as of 08/31/2023) Active Problems Patient Care Coordination No te [...] as of this encounter (statuses as of 08/31/2023) Resolved Problems Problem Noted Date Resolved Date [...] Page completed 06/20/2019 Asmita Kirk RN 06/19/19 [place] Mckeon contractions Pt having increased BH contractions/pressure- [...] 11/19/2015 01/26/2019 Overview: Culture was done at [facility] by myself on 11/14 Positive fibronectin [...] as of this encounter (statuses as of 08/31/2023) Immunizations Name Administration Dates Next Due DTP [...] Telephone Encounter - Jillian Nowak RN - 08/31/2023 2:15 PM EDT Attempted to call patient. No answer, LVM to return call. * Telephone Encounter - Laura Lund PA-C - 08/31/2023 12:39 PM EDT Pt no showed her appointment today with Dr. Alejandra. Initially scheduled to discuss BCRA gene positive. She was aware also had an abnormal pap smear. Can we call and get this patient rescheduled FANNIE. Please inform her that we are concerned about cervical cancer and highly important that she be seen back to follow up on these results. If unable to reach x 3, please send certified letter with pap results and recommendations for return. Laura Lund PA-C * Telephone Encounter - Jillian Noawk RN - 08/17/2023 9:27 AM EDT Attempted [...]
--- OUTSIDE RECORDS SUMMARY | 2024-01-30 18:07 | External Medical Summary | Summary of Care ---
Author Name Unknown Organization [facility] Address [address] [facility] [place] [address] Phone [phone] Care Team Providers Care Sewing Demonstrator Name Role Phone Unavailable Primary Care Provider Unavailabl e Encounter Details Date Type Department Care Team Description 07/30/2023 Telephone [facility] [address] [place] [address] Laura Lund PA-C [address] [place] [address] Allergies Active Allergy Reactions Severity Noted Date Comments Morphine And Related 02/08/2009 Tylenol with codeine causes itching documented as of this encounter (statuses as of 09/03/2023) Medications Medication Sig Dispensed Refills Start Date End Date Status Norethin Sanjeev-Eth Estrad-FE 1-20 MG-MCG Oral TabletIndications:Encou nter for surveillance of contraceptive pills Take 1 Tablet by mouth in the morning. 28 Tablet 2 07/21/2023 Active documented as of this encounter (statuses as of 09/03/2023) Active Problems Patient Care Coordination No te [...] as of this encounter (statuses as of 09/03/2023) Resolved Problems Problem Noted Date Resolved Date [...] Page completed 06/20/2019 Asmita Kirk RN 06/19/19 [place] Mckeon contractions Pt having increased BH contractions/pressure- [...] 11/19/2015 01/26/2019 Overview: Culture was done at [facility] by myself on 11/14 Positive fibronectin at [...] as of this encounter (statuses as of 09/03/2023) Immunizations Name Administration Dates Next Due DTP [...] Lund PA-C * Telephone Encounter - Jillian Nowak RN [...]
--- OUTSIDE RECORDS SUMMARY | 2024-01-30 18:07 | External Medical Summary | Summary of Care ---
Author Name Unknown Organization [facility] Address [address] [facility] [place] [address] Phone [phone] Care Team Providers Care Meat Processor Name Role Phone Unavailable Primary Care Provider Unavailabl e Encounter Details Date Type Department Care Team Description 07/30/2023 Telephone [facility] [address] [place] [address] Laura Lund PA-C [address] [place] [phone] Allergies Active Allergy Reactions Severity Noted Date Comments Morphine And Related 02/08/2009 Tylenol with codeine causes itching documented as of this encounter (statuses as of 09/04/2023) Medications Medication Sig Dispensed Refills Start Date End Date Status Norethin Sanjeev-Eth Estrad-FE 1-20 MG-MCG Oral TabletIndications:Encou nter for surveillance of contraceptive pills Take 1 Tablet by mouth in the morning. 28 Tablet 2 07/21/2023 Active documented as of this encounter (statuses as of 09/04/2023) Active Problems Patient Care Coordination No te [...] as of this encounter (statuses as of 09/04/2023) Resolved Problems Problem Noted Date Resolved Date [...] Page completed 06/20/2019 Asmita Kirk RN 06/19/19 [place] Mckeon contractions Pt having increased BH contractions/pressure- [...] 11/19/2015 01/26/2019 Overview: Culture was done at [facility] by myself on 11/14 Positive fibronectin [...] Home nursing Denies any need 05/09/2015 Felicita Laar RN Problem Action Taken Date entered Entered [...] as of this encounter (statuses as of 09/04/2023) Immunizations Name Administration Dates Next Due DTP [...] encounter Miscellaneous Notes * Telephone Encounter - Janet Mariee LPN - 09/04/2023 9:39 AM EDT Certified letter sent * Telephone Encounter - Jillian Nowak RN [...]
--- OUTSIDE RECORDS SUMMARY | 2024-01-30 18:07 | External Medical Summary | Summary of Care ---
Author Name Unknown Organization [facility] Address [address] [facility] [place] [address] Phone [phone] Care Team Providers Care Generator Switchboard Operator Name Role Phone Unavailable Primary Care Provider Unavailabl e Encounter Details Date Type Department Care Team Description 07/30/2023 Telephone [facility] [address] [place] [address] Laura Lund PA-C [address] [place] [address] Allergies Active Allergy Reactions Severity Noted Date [...] Page completed 06/20/2019 Asmita Kirk RN 06/19/19 [place] Mckeon contractions Pt having increased BH contractions/pressure- [...] 11/19/2015 01/26/2019 Overview: Culture was done at [facility] by myself on 11/14 Positive fibronectin [...]
[2024-01-30] MEDS ORDERED: OSELTAMIVIR PHOSPHATE 75 MG CAP PO SCH (21:00)
== END 2024-01-30 16:08 | disposition home or self-care (01) | DRG 153 ==
LOC: ED 16:37 → SUATTDRO 22:18 → EDINP 22:18 → 3E 01-30 02:44